=== PATIENT | male | born 1975 | race Caucasian/White ===

== ENCOUNTER 2019-09-11 19:56 | Emergency (ER) | payer MEDICAID ==
[~2019-09-11] VITALS: Ht 182.9 cm; Wt 109.0 kg
[2019-09-11 20:13] VITALS: BP 142/96
[2019-09-11] MEDS ORDERED: ibuprofen tablet 400 MG TABLET PO ONE (21:30)
[2019-09-11] MEDS ORDERED: OLAN20TA3 PO (21:33)
[2019-09-11] MEDS ORDERED: TRAZ300T2 PO (21:33)
[2019-09-11] MEDS ORDERED: HYDR50CA PO (21:33)
[2019-09-11] MEDS ORDERED: ibuprofen 200mg tablet PO ONE (21:35)
== END 2019-09-11 21:54 | disposition home or self-care (01) ==
LOC: ER 19:58
DX: S50.12XA Contusion of left forearm, initial encounter (principal); S59.911A Unspecified injury of right forearm, initial encounter; G89.29 Other chronic pain; F12.90 Cannabis use, unspecified, uncomplicated; Z59.0 Homelessness; Z98.890 Other specified postprocedural states; Z88.0 Allergy status to penicillin; Z79.899 Other long term (current) drug therapy; W18.30XA Fall on same level, unspecified, initial encounter; Y93.01 Activity, walking, marching and hiking; Y92.89 Other specified places as the place of occurrence of the external cause; Y99.9 Unspecified external cause status
CPT/HCPCS: 99283